=== PATIENT | male | born 1985 | race African-American/Black ===

== ENCOUNTER 2019-10-04 11:44 | Emergency (ER) | payer BC, OTHER ==
[~2019-10-04] VITALS: Ht 185.4 cm; Wt 71.8 kg
--- NOTE | 2019-10-04 11:54 | NUR ---
PT DRESSED IN GOWN, WARM BLANKET PROVIDED. MATEUS PEACE AT BEDSIDE FOR INITIAL ASSESSMENT. PT'S S/O AT BEDSIDE.
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
--- NOTE | 2019-10-04 12:39 | NUR ---
REPORT AT BEDSIDE TO BELKIS CATES WHO IS ASSUMING CARE AT THIS TIME.
--- NOTE | 2019-10-04 12:40 | NUR ---
urine collected and sent.
[2019-10-04 12:44] LABS: MICROSCOPIC NOT IND
[2019-10-04 12:48] LABS: CULTURE INDICATED? NO
[2019-10-04 12:50] LABS: ALBUMIN 4.6 g/dL (3.4-5.0); ANION GAP 4 mmol/L (5-15); CALCIUM 9.5 mg/dL (8.5-10.1); CHLORIDE 106 mmol/L (98-107)
[2019-10-04 12:54] LABS: ALANINE AMINOTRANSFERASE 26 U/L (12-78); ALKALINE PHOSPHATASE 79 U/L (45-117); BILIRUBIN,TOTAL 0.7 mg/dL (0.2-1.0); CREATININE 0.97 mg/dL (0.7-1.3)
[2019-10-04] MEDS ORDERED: SODIUM CHLORIDE FLUSH 10ML SYR IVF ONE (13:00)
[2019-10-04 13:10] LABS: BASOPHILS # (AUTO) 0.02 x10^3/uL (0-0.1); BASOPHILS % (AUTO) 0 % (0-1); EOSINOPHILS # (AUTO) 0.03 x10^3/uL (0-0.4); EOSINOPHILS % (AUTO) 1 % (1-7); LYMPHOCYTES # (AUTO) 2.15 x10^3/uL (1-3.4); LYMPHOCYTES % (AUTO) 53 % (22-44); MD SCAN; MEAN CORPUSCULAR HEMOGLOBIN 30.5 pg (27.5-34.5); MEAN CORPUSCULAR VOLUME 92.3 fL (81-97); MEAN PLATELET VOLUME 8.7 fL (7.4-10.4); MONOCYTES # (AUTO) 0.31 x10^3/uL (0.2-0.8); MONOCYTES % (AUTO) 8 % (2-9); NEUTROPHILS # (AUTO) 1.52 x10^3/uL (1.8-6.8); NEUTROPHILS % (AUTO) 38 % (42-75); PLATELET COUNT 189 x10^3/uL (130-400); RED BLOOD COUNT 5.52 x10^6/uL (4.38-5.82); RED CELL DISTRIBUTION WIDTH 15.5 % (9.4-14.8)
--- NOTE | 2019-10-04 13:12 | NUR ---
PT IN CT AT THIS TIME.
[2019-10-04] MEDS ORDERED: OMNIPAQUE 350 MG/ML, 100ML BOTTLE ONE (13:22)
--- NOTE | 2019-10-04 13:37 | NUR ---
PT BACK TO ROOM FROM CT. PT'S AOX4. RESPS EVEN AND UNLABORED. BP/SPO2 MONITORS IN PLACE. CALL LIGHT WITHIN REACH.
[2019-10-04 14:56] VITALS: BP 124/83
--- NOTE | 2019-10-04 14:57 | NUR ---
Patient given discharge instructions and they have confirmed that they understand the instructions. Patient ambulatory with steady gait.
== END 2019-10-04 14:58 | disposition home or self-care (01) ==
LOC: ED 13:01
DX: K62.5 Hemorrhage of anus and rectum (principal)
CPT/HCPCS: 36415; 74177; 80053; 81003; 83690; 85025; 99285; Q9967

== ENCOUNTER 2020-11-06 18:07 | Emergency (ER) | payer OTHER ==
[~2020-11-06] VITALS: Ht 182.9 cm; Wt 71.0 kg
[2020-11-06 18:10] VITALS: BP 138/85
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
[2020-11-06] MEDS ORDERED: FLUORESCEIN OPHTHALMIC 1 MG STRIP EACHEYE ONE (19:00)
[2020-11-06] MEDS ORDERED: PROPARACAINE OPHTH 0.5%, 15ML EACHEYE ONE (19:00)
[2020-11-06] MEDS ORDERED: OXYcodone/APAP 5/325MG TABLET PO ONE (19:00)
[2020-11-06] MEDS ORDERED: FLUORESCEIN OPHTHALMIC 1 MG STRIP ONE (19:05)
[2020-11-06] MEDS ORDERED: PROPARACAINE OPHTH 0.5%, 15ML ONE (19:05)
== END 2020-11-06 20:36 | disposition home or self-care (01) ==
LOC: ED 18:37
DX: S00.11XA Contusion of right eyelid and periocular area, initial encounter (principal); S09.90XA Unspecified injury of head, initial encounter; M54.2 Cervicalgia; X58.XXXA Exposure to other specified factors, initial encounter; Y93.89 Activity, other specified; Y92.009 Unspecified place in unspecified non-institutional (private) residence as the place of occurrence of the external cause; Y99.8 Other external cause status
CPT/HCPCS: 70450; 70486; 72125; 99285